=== PATIENT | female | born 2005 | race Caucasian/White ===

== ENCOUNTER 2024-03-06 10:27 | Outpatient (REF) | payer OTHER, SELFPAY ==
[2024-03-06 15:08] LABS: MANUAL DIFF FLAG NO
[2024-03-06 15:13] LABS: Basophils Percent Auto 0.2 % (0-2); Eosinophils Absolute Auto 0.1 X10*3/uL (0.0-0.4); Eosinophils Percent Auto 1.3 % (0-4); Hematocrit 38.5 % (37.0-47.0); Hemoglobin 11.9 g/dl (12.0-16.0); Imm Gran Abs Auto 0.02 X10*3/uL (0.00-0.03); Imm Gran Pct Auto 0.2 % (0.0-0.4); Lymphocytes Absolute Auto 3.7 X10*3/uL (1.2-4.9); Lymphocytes Percent Auto 34.5 % (20-40); Mean Corpuscular HGB Conc 30.9 g/dl (31.0-35.0); Mean Corpuscular Volume 77.6 fL (80.0-98.0); Mean Platelet Volume 9.1 fL (9.4-12.3); Monocytes Absolute Auto 0.6 X10*3/uL (0.1-1.2); Monocytes Percent Auto 5.6 % (2-11); Neutrophils Absolute Auto 6.2 x10*3/uL (2.0-8.3); Neutrophils Percent Auto 58.2 % (45-73); Platelet Count 396 X10*3/uL (160-400); Red Blood Count 4.96 X10*6/uL (4.20-5.50); White Blood Count 10.6 X10*3/uL (4.8-10.8)
[2024-03-06 15:46] LABS: Estimated Average Glucose 114 mg/dL; Hemoglobin A1c % 5.6 % (<6.0)
[2024-03-06 16:04] LABS: Alanine Aminotransferase 12 U/L (0-31); Albumin Level 3.8 g/dL (3.5-5.0); Alkaline Phosphatase 101 U/L (39-117); Anion Gap 15 (12-20); Aspartate Amino Transferase 16 U/L (5-31); Bilirubin Direct 0.2 mg/dL (0.0-0.5); Bilirubin Total 0.3 mg/dL (0.0-1.0); Blood Urea Nitrogen 10 mg/dL (9-16); Calcium 9.5 mg/dL (8.4-10.2); Carbon Dioxide 26 mmol/L (22-29); Chloride 103 mmol/L (96-108); Cholesterol 159 mg/dL (<200); Estimated Glomerular Filt Rate > 60; Glucose Random 86 mg/dL (60-115); HDL Cholesterol 45 mg/dL (>40); LDL Cholesterol Calculated 86 mg/dL (<100); Potassium 3.9 mmol/L (3.3-5.1); Sodium 140 mmol/L (135-145); Total Protein 7.3 g/dL (6.5-8.0); Triglycerides 140 mg/dL (<150)
[2024-03-06 16:23] LABS: Insulin 23 uU/mL (2-29)
[2024-03-06 17:02] LABS: TSH reflex Free T4 2.37 uIU/mL (0.32-4.0)
[2024-03-07 07:33] LABS: DHEA Sulfate 80 mcg/dL (44-286)
== END 2024-03-06 10:28 | disposition home or self-care (01) ==
LOC: HO.CHCLDS 10:27
PROVIDERS: Visit Provider Pediatrics
DX: F32.9 Major depressive disorder, single episode, unspecified (principal); Z23 Encounter for immunization; E66.01 Morbid (severe) obesity due to excess calories; Z13.1 Encounter for screening for diabetes mellitus
CPT/HCPCS: 36415; 80048; 80061; 80076; 82306; 82627; 83036; 83525; 84443; 85025

== ENCOUNTER 2024-11-25 11:14 | Outpatient (REF) | payer OTHER, SELFPAY ==
--- OUTSIDE RECORDS SUMMARY | 2024-11-25 12:48 | XMS_ITS | Encounter Summary ---
Author Organization [employer] Address [address] [place] [address] [place] [address] Care Team Providers Care Manufacturing Intern Name Role Phone Sunshine Pichardo MD Primary Care Provider [phone] Reason for Visit * Reason Onset Date Comments Lab Orders 11/21/2024 Encounter Details Date Type Department Care Team ([facility] st Contact Info) Description 11/21/2024 Telephone [facility] [address] [place] [address] Sunshine Pichardo MD [address] [place] [address] Lab Orders Social History Tobacco Use Types Packs/Day Years Used Date Smoking Tobacco: Never Passive Smoke Exposure: Never Smokeless Tobacco: Never Alcohol Answer Date Recorded Frequency of Alcohol Consumption Not on file 03/06/2024 Average Number of Drinks Not on file 024 Frequency of Binge Drinking Not on file 02/11 Score 0 03/06/2024 Depression Answer Date Recorded Patient Health Questionnaire-9 Score 6 03/06/2024 Patient Health Questionnaire-9 Score 6 03/06/2024 Last PHQ-9: Questionnaire Data Not on file 0 03/06/2024 Housing Stability Answer Date Recorded What is your housing situation today? I have carly valencia 03/06/[address] you li ve. Do you have problems with any of the following? None of the above 03/06/2024 Food Insecurity Answer Date Recorded Within the past 12 months, y ou worried that your food would run out before you got money to buy more: Never True 03/06/2024 Within the past 12 months,th e food you bought just didn't last and you didn't have enough money to get more: Never True Transportation Answer Date Recorded In the past 12 months, has l ack of transportation kept you from medical appts, meetings, work or from getting things needed for daily living? No 03/06/2024 Utilities Answer Date Recorded In the past 12 months, has t he electric, gas, oil or water company threatened to shut off services in your home? No 03/06/2024 Depression Answer Date Recorded Patient Health Questionnaire-2 Score 2 03/06/2024 Internet Access Answer Date Recorded Internet Access Q1 Yes 03/06/2024 Internet Access Q2 Not on file 03/06/2024 Comments Unknown Sex and Gender Information Value Date Recorded Sex Assigned at Female 04/11/2022 10:37 AM EDT Legal Sex Female 10:37 AM EDT Gender Identity Female 04/11/2022 10:37 AM EDT Sexual Orientation Straight 03/06/2024 11 :38 AM EDT documented as of this encounter Miscellaneous Notes * Telephone Encounter - Malini Arias RN - 11/21/2024 4:11 PM EDT My chart message sent to patient. * Telephone Encounter - Dari Tillman - 11/21/2024 3:54 PM EDT Tc from pt requesting TB lab order documented in this encounter Plan of Treatment Scheduled Orders Name Type Priority Associated Diagnoses Orde r Schedule T-SPOT??.TB Lab Routine Screening for tuberculosis Expected: 11/21/2024 (Approximate), Expires: 11/21/2025 documented as of this encounter Visit Diagnoses Diagnosis Screening for tuberculosis Screening examination for pulmonary tuberculosis documented in this encounter Additional Health Concerns Assessment Noted Time PHQ-9 Depression Total Score: 6 03/06/20 24 10:11 AM EDT documented as of this encounter Care Teams Manufacturing Intern Relationship Specialty Start Date End Date Sunshine Pichardo MD [address] [place] [address] PCP - General Internal Medicine 07/27/23 documented as of this encounter
[2024-11-28 01:54] LABS: TS Negative Control Passed; TS Panel A 0; TS Panel B 0; TS Positive Control Passed; TSpotTB Negative (Negative)
== END 2024-11-25 11:15 | disposition home or self-care (01) ==
LOC: HO.CHCLDS 11:14
PROVIDERS: Visit Provider Pediatrics
DX: Z11.1 Encounter for screening for respiratory tuberculosis (principal)
CPT/HCPCS: 36415; 86481